=== PATIENT | male | born 1945 | race Caucasian/White ===

== ENCOUNTER 2016-07-14 19:33 | Emergency (ER) | payer SELFPAY ==
[~2016-07-14] VITALS: Ht 154.9 cm; Wt 88.0 kg
[2016-07-14 19:34] VITALS: BP 172/86; PULSE 127; RESP 18; TEMP 101.9; O2SAT 93
== END 2016-07-14 20:21 | disposition left against medical advice (07) ==
LOC: NED 19:33
DX: R68.89 Other general symptoms and signs (principal)
CPT/HCPCS: 99281